=== PATIENT | female | born 1980 | race Two or more races ===

== ENCOUNTER → 2017-01-07 | Outpatient (CLI) | payer OTHER ==
[2015-12-28 12:33] VITALS: BP 107/63
== END | disposition home or self-care (01) ==
LOC: SPEC 09:19
PROVIDERS: ATTEND Family Medicine
DX: Z01.419 Encounter for gynecological examination (general) (routine) without abnormal findings (principal)
CPT/HCPCS: 88175

== ENCOUNTER → 2017-01-16 | Outpatient (CLI) | payer OTHER ==
[2015-12-28 12:33] VITALS: BP 107/63
--- NOTE | 2017-01-16 10:28 | RAD ---
Abdominal ultrasound, 01/16/2017: History: Right upper quadrant pain The gallbladder is within normal limits in size. There is no sonographic evidence of cholelithiasis. The gallbladder belle are not thickened. No bile duct dilatation is seen. The visualized portions of the liver, spleen and both kidneys are unremarkable. The pancreas was obscured by overlying bowel. The visualized portions of the aorta and inferior vena cava are unremarkable. No free fluid is evident in the abdomen. IMPRESSION: No significant abdominal abnormality is detected, although the pancreas was obscured by overlying bowel.
== END | disposition home or self-care (01) ==
LOC: US 10:30
PROVIDERS: ATTEND Family Medicine
DX: R10.11 Right upper quadrant pain (principal)
CPT/HCPCS: 76700

== ENCOUNTER 2017-09-25 05:57 | Day surgery (SDC) | payer OTHER ==
[2017-09-25 06:30] LABS: NEG OBC UR NEG; POS OBC UR POS
[2017-09-25] MEDS ORDERED: ONDANSETRON PF 4 MG/2 ML VIAL. IV PRN (07:00)
[2017-09-25] MEDS ORDERED: LIDOCAINE 1% PF 2 ML VIAL. ID PRN (07:00)
[2017-09-25] MEDS ORDERED: PROCHLORPERAZINE 10 MG/2 ML VIAL. IV PRN (07:00)
[2017-09-25] MEDS ORDERED: fentaNYL PF VIAL 100 MCG/2 ML VIAL IV PRN ×2 (07:00)
[2017-09-25] MEDS ORDERED: IV RINGERS,LACTATED 1000ML 1,000 ML IV SCH (07:00)
[2017-09-25] MEDS ORDERED: MIDAZOLAM HCL/PF 2 MG/2 ML VIAL. ONE (07:05)
[2017-09-25] MEDS ORDERED: KETOROLAC 30 MG/ML INJ FOR OR. INJ ONE (07:05)
[2017-09-25] MEDS ORDERED: DEXAMETHASONE SOD PHOS 20 MG/5 ML VIAL. ONE (07:05)
[2017-09-25] MEDS ORDERED: LIDOCAINE 2% PF Vial for OR 5 ML VIAL. ONE (07:05)
[2017-09-25] MEDS ORDERED: PROPOFOL 20 ML IV ONE (07:05)
[2017-09-25] MEDS ORDERED: ONDANSETRON PF 4 MG/2 ML VIAL. ONE (07:05)
[2017-09-25] MEDS ORDERED: ESTROGENS, CONJ VAGINAL CREAM 30GM TUBE. ONE (07:11)
[2017-09-25] MEDS ORDERED: 0.9 % SODIUM CHLORIDE 50 ML VIAL. IJ ONE (07:13)
[2017-09-25] MEDS ORDERED: BUPIVAC MPF-EPI 0.5%-1:200000 30 ML VIAL. ONE (07:30)
--- NOTE | 2017-09-25 08:52 | PDOC ---
BRIEF OPERATIVE NOTE Date: Sep 25, 2017 Pre-Op Diagnosis erosion of vaginal mesh; pt asymptomatic, can feel during intercourse Post-Op Diagnosis same Procedure Performed excision of small piece of vaginal mesh at pt upper right side of mesh on anterior vagina Surgeon Dr. Iza Enriquez Anesthesiologist Dr. Al Anesthesia Type: General Blood Loss 10cc IV Fluid see anesthesia records Urine Output 120cc straight cath clear prior and 10-15cc clear after as well Specimens Obtained none Findings small 0.5cm area on pt upper right anterior vaginal wall with tiny piece of blue prolene poking through and the 0.5cm area thinned on anterior vaginal wall Complications none Operative Note [id number] IZA ENRIQUEZ MD Sep 25, 2017 08:52
[2017-09-25] MEDS ORDERED: MAG HYDROX/ALUMINUM HYD/SIMETH 30 ML ORAL.SUSP PO PRN (09:00)
[2017-09-25] MEDS ORDERED: diphenhydrAMINE HCL 25 MG CAPSULE PO PRN (09:00)
[2017-09-25] MEDS ORDERED: SIMETHICONE 80 MG TAB.CHEW PO PRN (09:00)
[2017-09-25] MEDS ORDERED: NALOXONE 0.4 MG/ML VIAL. IV PRN (09:00)
[2017-09-25] MEDS ORDERED: oxyCODONE/APAP 5/325 1 TAB TABLET PO PRN ×2 (09:00→09:15)
[2017-09-25] MEDS ORDERED: CALCIUM CARBONATE 500 MG TAB.CHEW PO PRN (09:00)
[2017-09-25] MEDS ORDERED: 0.9 % SODIUM CHLORIDE 10 ML DISP.SYRIN. IV PRN (09:00)
[2017-09-25] MEDS ORDERED: diphenhydrAMINE 50 MG/ML VIAL IV PRN (09:00)
[2017-09-25] MEDS ORDERED: OXYC-323 PO (09:12)
[2017-09-25 09:31] VITALS: BP 100/63
--- NOTE | 2017-09-25 09:39 | CONS ---
DATE OF CONSULTATION: 09/25/2017 PREOPERATIVE DIAGNOSIS: Dyspareunia per her with a very tiny piece of blue Prolene protruding through on the anterior vaginal wall from a previous TVT, bladder sling. POSTOPERATIVE DIAGNOSIS: Dyspareunia per her with a very tiny piece of blue Prolene protruding through on the anterior vaginal wall from a previous TVT, bladder sling. PROCEDURE: Excision of a small piece of vaginal mesh from the patient's right upper anterior vaginal wall. SURGEON: Dr. Serenity Enriquez. COMPLIANCE REPRESENTATIVE: OR personnel. ANESTHESIA: General. ANESTHESIOLOGIST: Dr. Al. ESTIMATED BLOOD LOSS: Less than 10 mL. IV FLUIDS: Please see anesthesia. URINE: 120 mL straight cath prior to procedure and 10-15 mL clear at the end as well. SPECIMENS: None. FINDINGS: A small area of a tiny piece of blue Prolene that I could see and feel on the anterior right upper vaginal wall, but it was thinning in about 0.5 cm area. COMPLICATIONS: None. DESCRIPTION OF PROCEDURE: This patient was taken to the operating room where general anesthesia was placed. The patient was placed in dorsal lithotomy position in [facility]. The patient's vagina was prepped and draped in the normal sterile fashion and straight cath urine was done prior to starting. After a timeout was performed, a weighted speculum was placed in the patient's vagina. A curved Radha clamp was used to bean picker that tiny piece of blue Prolene in the anterior vaginal wall, pulling it down I could feel about a 0.5 cm area that was thinning around it, so I did inject it with a dilute solution of 1 part ____ of bupivacaine to 100 mL of injectable saline. It was a dilute solution. 20-25 mL was injected in this area. A scalpel was used to make a small vertical 1 cm incision over the area. Allis clamps were placed on either side and it was dissected from the area beneath where it was thinning on this right upper anterior vaginal wall. The sling was peeled off the anterior skin that was right there and it was clipped and excised, a very small 0.5 cm area. There was no bleeding. The remainder of the sling remained intact and covered. This was over a year ago, so I just excised the area that was protruding through and thinning. Once this was done, I felt around, making sure that we excised the complete area that was coming down. I did a 2-layer closure, first a subcuticular layer with 4-0 Monocryl and then 2-0 Vicryl over the top making sure to start above and over so below the area to hopefully prevent any of this from happening again. Once it was done, Premarin cream was used to cover the incisional areas and straight cath urine was done at the end to make sure the urine in urethral area was untouched and clear. SERENITY ENRIQUEZ MD DR: MIHIR/lina JOB#: [id number] / [id number]
--- NOTE | 2017-09-26 10:25 | OP ---
DATE OF SURGERY: 09/25/2017 PREOPERATIVE DIAGNOSIS: Dyspareunia per her with a very tiny piece of blue Prolene protruding through on the anterior vaginal wall from a previous TVT, bladder sling. POSTOPERATIVE DIAGNOSIS: Dyspareunia per her with a very tiny piece of blue Prolene protruding through on the anterior vaginal wall from a previous TVT, bladder sling. PROCEDURE: Excision of a small piece of vaginal mesh from the patient's right upper anterior vaginal wall. SURGEON: Dr. Serenity Enriquez. WASHING TUB OPERATOR: OR personnel. ANESTHESIA: General. ANESTHESIOLOGIST: Dr. Al. ESTIMATED BLOOD LOSS: Less than 10 mL. IV FLUIDS: Please see anesthesia. URINE: 120 mL straight cath prior to procedure and 10-15 mL clear at the end as well. SPECIMENS: None. FINDINGS: A small area of a tiny piece of blue Prolene that I could see and feel on the anterior right upper vaginal wall, but it was thinning in about 0.5 cm area. COMPLICATIONS: None. DESCRIPTION OF PROCEDURE: This patient was taken to the operating room where general anesthesia was placed. The patient was placed in [facility]. The patient's vagina was prepped and draped in the normal sterile fashion and straight cath urine was done prior to starting. After a timeout was performed, a weighted speculum was placed in the patient's vagina. A curved Radha clamp was used to order picker/assembler that tiny piece of blue Prolene in the anterior vaginal wall, pulling it down I could feel about a 0.5 cm area that was thinning around it, so I did inject it with a dilute solution of 1 part ____ of bupivacaine to 100 mL of injectable saline. It was a dilute solution. 20-25 mL was injected in this area. A scalpel was used to make a small vertical 1 cm incision over the area. Allis clamps were placed on either side and it was dissected from the area beneath where it was thinning on this right upper anterior vaginal wall. The sling was peeled off the anterior skin that was right there and it was clipped and excised, a very small 0.5 cm area. There was no bleeding. The remainder of the sling remained intact and covered. This was over a year ago, so I just excised the area that was protruding through and thinning. Once this was done, I felt around, making sure that we excised the complete area that was coming down. I did a 2-layer closure, first a subcuticular layer with 4-0 Monocryl and then 2-0 Vicryl over the top making sure to start above and over so below the area to hopefully prevent any of this from happening again. Once it was done, Premarin cream was used to cover the incisional areas and straight cath urine was done at the end to make sure the urine in urethral area was untouched and clear. SERENITY ENRIQUEZ MD DR: MIHIR/lina JOB#: [id number] / [id number]
== END 2017-09-25 10:08 | disposition home or self-care (01) ==
LOC: SURG 05:57
PROVIDERS: ATTEND Obstetrics & Gynecology
DX: T83.711A Erosion of implanted vaginal mesh to surrounding organ or tissue, initial encounter (principal); N94.19 Other specified dyspareunia; Z98.890 Other specified postprocedural states; Z88.8 Allergy status to other drugs, medicaments and biological substances
CPT/HCPCS: 57287; 81025; J0780; J1100; J1885; J2250; J2405; J2704; J3010; J3490; J2001

== ENCOUNTER → 2018-06-19 | Outpatient (CLI) | payer OTHER ==
[~2018-06-19] MED LIST: OXYC-323 PO
--- NOTE | 2018-06-19 08:40 | RAD ---
Examination: Ultrasound right upper quadrant abdomen HISTORY: History of right upper quadrant pain COMPARISON: 01/16/2017 FINDINGS: The visualized pancreas grossly appears unremarkable. The echogenicity of the liver grossly appears unremarkable. No evidence of gallstones. The right lobe of the liver measures 15 cm in length. The common bile duct measures 3.8 mm in diameter. The right kidney measures 10.6 cm. IMPRESSION: Unremarkable visualized exam. Electronically signed by: Rodolfo Basurto MD (06/19/2018 8:37 AM) [id number]
== END | disposition home or self-care (01) ==
LOC: US 07:00
PROVIDERS: ATTEND Nurse Practitioner Gerontology
DX: R10.11 Right upper quadrant pain (principal); Z88.8 Allergy status to other drugs, medicaments and biological substances
CPT/HCPCS: 76705

== ENCOUNTER 2018-07-08 13:31 | Observation (INO) | payer OTHER ==
[~2018-07-08] VITALS: Ht 165.1 cm; Wt 87.2 kg
[2018-07-08 14:46] LABS: BASO # 0.1 x10^3/uL (0.0-0.2); BASO % 1 % (0-3); EOS # 0.2 x10^3/uL (0.0-0.7); EOS % 3 % (0-3); HEMATOCRIT 34.7 % (36.0-47.0); HEMOGLOBIN 11.2 g/dL (12.0-15.5); LYMPH # 2.1 x10^3/uL (1.0-4.8); LYMPH % 33 % (24-48); MEAN CORPUSCULAR HEMOGLOBIN 23 pg (25-35); MEAN CORPUSCULAR HGB CONC 32 g/dL (31-37); MEAN CORPUSCULAR VOLUME 71 fL (79-100); MONO # 0.5 x10^3/uL (0.0-1.1); MONO % 7 % (0-9); NEUT # 3.5 x10^3uL (1.8-7.7); NEUT % 56 % (31-73); PLATELET COUNT 382 x10^3/uL (140-400); RED BLOOD COUNT 4.88 x10^6/uL (3.50-5.40); RED CELL DISTRIBUTION WIDTH 17.8 % (11.5-14.5); WHITE BLOOD COUNT 6.4 x10^3/uL (4.0-11.0)
[2018-07-08 14:49] LABS: BILIRUBIN,URINE NEGATIVE (NEG); CLARITY,URINE CLEAR; COLOR,URINE YELLOW; NITRITE,URINE NEGATIVE (NEG); PH,URINE 5.5; PROTEIN,URINE NEGATIVE (NEG-TRACE); UROBILINOGEN,URINE 0.2 mg/dL (0.2 mg/dL)
[2018-07-08 14:54] LABS: CREATININE 0.7 mg/dL (0.6-1.0); GFR 92.7; POTASSIUM 3.6 mmol/L (3.5-5.1)
[2018-07-08 14:57] LABS: ALBUMIN 3.6 g/dL (3.4-5.0)
[2018-07-08 14:58] LABS: BACTERIA,URINE MODERATE /HPF (0-FEW); RBC,URINE 0 /HPF (0-2); SQUAMOUS EPITHELIAL CELL,UR MANY /LPF; WBC,URINE RARE /HPF (0-4)
--- NOTE | 2018-07-08 15:07 | RAD ---
EXAM: Chest, 2 views. HISTORY: Pain. COMPARISON: 08/19/2011. FINDINGS: 2 views the chest are obtained. There is no infiltrate, pleural effusion or pneumothorax. The heart is normal in size. IMPRESSION: No acute pulmonary finding. Electronically signed by: Antonia Montez MD (07/08/2018 3:04 PM) [facility]
[2018-07-08 15:09] LABS: ANISOCYTOSIS SLIGHT; HYPOCHROMIA SLIGHT; MICROCYTOSIS MOD; PLT ESTIMATE ADEQUATE (ADEQUATE); POIKILOCYTOSIS SLIGHT
[2018-07-08 15:10] LABS: OVALOCYTES FEW
[2018-07-08 15:13] LABS: TOTAL BILIRUBIN 0.7 mg/dL (0.2-1.0); TOTAL PROTEIN 7.1 g/dL (6.4-8.2)
--- NOTE | 2018-07-08 16:10 | PHYS DOC ---
Past Medical History Past Medical History: No Pertinent History Additional Past Surgical Histo: BLADDER SLING, TUMMY TUCK. Alcohol Use: Occasionally Drug Use: None Adult General Chief Complaint Chief Complaint: ABDOMINAL PAIN HPI HPI 38-year-old female presents for evaluation of RIGHT upper abdominal pain. She reports symptoms started again last night. He has had similar pain in the past. She reports was seen 3 weeks ago by her primary care doctor, had a ultrasound of the gallbladder that was negative at that time. She reports pain starts in her right upper quadrant radiates up to the back of her right shoulder. Symptoms started again last night after eating dinner. She denies vomiting, diarrhea or fevers. Denies shortness of breath. Review of Systems Review of Systems Constitutional: Denies fever or chills [] Eyes: Denies change in visual acuity, redness, or eye pain [] HENT: Denies nasal congestion or sore throat [] Respiratory: Denies cough or shortness of breath [] Cardiovascular: No additional information not addressed in HPI [] Neurologic: Denies headache, focal weakness or sensory changes [] Endocrine: Denies polyuria or polydipsia [] All other systems were reviewed and found to be within normal limits, except as documented in this note. Allergies Allergies Allergies Coded Allergies Type Severity Reaction Last Updated Verified codeine Allergy Intermediate Rash 09/25/17 Yes Physical Exam Physical Exam Constitutional: Well developed, well nourished, non-toxic appearance. [] Neck: Normal range of motion, no tenderness, supple, no stridor. [] Cardiovascular:Heart rate regular rhythm, no murmur [] Lungs & Thorax: Bilateral breath sounds clear to auscultation [] Abdomen: Bowel sounds normal, soft, TTP RT UPPER ABD, no masses, no pulsatile masses. [] Skin: Warm, dry, no erythema, no rash. [] Back: No tenderness, no CVA tenderness. [] Extremities: No tenderness, no cyanosis, no clubbing, ROM intact, no edema. [] Neurologic: Alert and oriented X 3, normal motor function, normal sensory function, no focal deficits noted. [] Psychologic: Affect normal, judgement normal, mood normal, Current Patient Data Vital Signs Vital Signs Date Time Temp Pulse Resp B/P (MAP) Pulse Ox O2 Delivery O2 Flow Rate FiO2 07/08/18 14:05 98.3 83 20 119/61 (80) 99 Room Air 98.3 Lab Values Laboratory Tests Test 07/08/18 14:05 07/08/18 14:08 07/08/18 14:35 Urine Collection Type Unknown Urine Color Yellow Urine Clarity Clear Urine pH 5.5 Urine Specific [place] 1.020 Urine Protein Negative mg/dL (NEG-TRACE) Urine Glucose (UA) Negative mg/dL (NEG) Urine Ketones (Stick) Trace mg/dL (NEG) Urine Blood Negative (NEG) Urine Nitrite Negative (NEG) Urine Bilirubin Negative (NEG) Urine Urobilinogen Dipstick 0.2 mg/dL (0.2 mg/dL) Urine Leukocyte Esterase Negative (NEG) Urine RBC 0 /HPF (0-2) Urine WBC Rare /HPF (0-4) Urine Squamous Epithelial Cells Many /LPF Urine Bacteria Moderate /HPF (0-FEW) Urine Mucus Mod /LPF POC Urine HCG, Qualitative Hcg negative (Negative) White Blood Count 6.4 x10^3/uL (4.0-11.0) Red Blood Count 4.88 x10^6/uL (3.50-5.40) Hemoglobin 11.2 g/dL (12.0-15.5) L Hematocrit 34.7 % (36.0-47.0) L Mean Corpuscular Volume 71 fL (79-100) L Mean Corpuscular Hemoglobin 23 pg (25-35) L Mean Corpuscular Hemoglobin Concent 32 g/dL (31-37) Red Cell Distribution Width 17.8 % (11.5-14.5) H Platelet Count 382 x10^3/uL (140-400) Neutrophils (%) (Auto) 56 % (31-73) Lymphocytes (%) (Auto) 33 % (24-48) Monocytes (%) (Auto) 7 % (0-9) Eosinophils (%) (Auto) 3 % (0-3) Basophils (%) (Auto) 1 % (0-3) Neutrophils # (Auto) 3.5 x10^3uL (1.8-7.7) Lymphocytes # (Auto) 2.1 x10^3/uL (1.0-4.8) Monocytes # (Auto) 0.5 x10^3/uL (0.0-1.1) Eosinophils # (Auto) 0.2 x10^3/uL (0.0-0.7) Basophils # (Auto) 0.1 x10^3/uL (0.0-0.2) Platelet Estimate Adequate (ADEQUATE) Hypochromasia Slight Poikilocytosis Slight Anisocytosis Slight Microcytosis Mod Ovalocytes Few Sodium Level 138 mmol/L (136-145) Potassium Level 3.6 mmol/L (3.5-5.1) Chloride Level 101 mmol/L (98-107) Carbon Dioxide Level 26 mmol/L (21-32) Anion Gap 11 (6-14) Blood Urea Nitrogen 12 mg/dL (7-20) Creatinine 0.7 mg/dL (0.6-1.0) Estimated GFR (Cockcroft-Gault) 92.7 BUN/Creatinine Ratio 17 (6-20) Glucose Level 91 mg/dL (70-99) Calcium Level 9.0 mg/dL (8.5-10.1) Total Bilirubin 0.7 mg/dL (0.2-1.0) Aspartate Amino Transferase (AST) 15 U/L (15-37) Alanine Aminotransferase (ALT) 13 U/L (14-59) L Alkaline Phosphatase 79 U/L (46-116) Creatine Kinase 65 U/L (26-192) Creatine Kinase MB (Mass) < 0.5 ng/mL (0.0-3.6) Creatine Kinase MB Relative Index % (0-4) Troponin I Quantitative < 0.017 ng/mL (0.000-0.055) Total Protein 7.1 g/dL (6.4-8.2) Albumin 3.6 g/dL (3.4-5.0) Albumin/Globulin Ratio 1.0 (1.0-1.7) Lipase 176 U/L (73-393) Laboratory Tests 07/08/18 14:35 Laboratory Tests 07/08/18 14:35 EKG EKG [EKG rate 62, sinus rhythm, T-wave abnormality in inferior leads Radiology/Procedures Radiology/Procedures [PROCEDURE: CHEST PA & LATERAL EXAM: Chest, 2 views. HISTORY: Pain. COMPARISON: 08/19/2011. FINDINGS: 2 views the chest are obtained. There is no infiltrate, pleural effusion or pneumothorax. The heart is normal in size. IMPRESSION: No acute pulmonary finding. Electronically signed by: Antonia Montez MD (07/08/2018 3:04 PM) [id number] ]] Course & Med Decision Making Course & Med Decision Making Pertinent Labs and Imaging studies reviewed. (See chart for details) [HEART SCORE=0, repeat EKG is same as first one obtained, sinus rhythm with T- wave abnormality in inferior leads, ST depression is noted, first set of cardiac enzymes is negative. Chest x-ray is negative. Patient has recently had a negative abdominal ultrasound. Patient was seen by Dr. Siddiqui, decision was made to admit patient for serial cardiac enzymes and cardiology consults. Patient is admitted to Dr. Oh, she is stable for admission.] Dragon Disclaimer Dragon Disclaimer This electronic medical record was generated, in whole or in part, using a voice recognition dictation system. Departure Departure Impression: Primary Impression: ST segment depression Additional Impression: Electrocardiogram showing T wave abnormalities Disposition: 09 ADMITTED INPATIENT Admitting Physician: Hilary Oh Condition: STABLE Referrals: HILARY OH MD (PCP) Problem Qualifiers MAXWELL GRAY APRN Jul 08, 2018 16:10
[2018-07-08 16:51] LABS: CREATINE KINASE 65 U/L (26-192)
--- NOTE | 2018-07-08 17:14 | EKG ---
[facility] [address] [place] [address] Test Date: 2018-07-08 Test Time: 16:06:37 Pat Name: FLORIAN THOMAS Department: Room: Gender: F [employer]: : 1980 Requested By: STAFF NON Order Number: [id number] Reading MD: Louie Boggs Measurements Intervals [place] Rate: 62 P: 22 WI: 158 QRS: 0 QRSD: 90 T: -2 QT: 414 QTc: 422 Interpretive Statements SINUS RHYTHM LEFTWARD AXIS T ABNORMALITY IN INFERIOR LEADS Electronically Signed On 07-14-2018 10:15:29 CDT by Louie Boggs
--- NOTE | 2018-07-08 19:54 | EKG ---
[facility] [address] [place] [address] Test Date: 2018-07-08 Test Time: 16:57:45 Pat Name: FLORIAN THOMAS Department: Room: 208 1 Gender: Female [employer] Detective: : 1980 Requested By: MAXWELL GRAY Order Number: [id number] Reading MD: Louie Boggs Measurements Intervals [place] Rate: 63 P: 25 PA: 158 QRS: 0 QRSD: 88 T: -3 QT: 406 QTc: 419 Interpretive Statements SINUS RHYTHM LEFTWARD AXIS T ABNORMALITY IN INFERIOR LEADS ABNORMAL ECG Electronically Signed On 07-14-2018 10:15:49 CDT by Louie Boggs
[2018-07-08 19:57] VITALS: BP 92/56
[2018-07-08 22:41] VITALS: BP 96/60
[2018-07-09 03:23] VITALS: BP 93/51
[2018-07-09 07:00] VITALS: BP 95/54
--- NOTE | 2018-07-09 08:09 | EKG ---
[facility] [address] [place] [address] Test Date: 2018-07-09 Test Time: 08:02:39 Pat Name: FLORIAN THOMAS Department: Room: 208 1 Gender: F [employer]: BAY[place] : 1980 Requested By: SUSIE RYAN Order Number: [id number] Reading MD: Louie Boggs Measurements Intervals [place] Rate: 58 P: 27 ND: 162 QRS: 0 QRSD: 82 T: -1 QT: 396 QTc: 392 Interpretive Statements SINUS RHYTHM LEFTWARD AXIS T ABNORMALITY IN INFERIOR LEADS ABNORMAL ECG RI6.01 No previous ECG available for comparison Electronically Signed On 07-14-2018 10:19:48 CDT by Louie Boggs
[2018-07-09 08:51] LABS: HEMOGLOBIN 11.4 g/dL (12.0-15.5); RED BLOOD COUNT 4.93 x10^6/uL (3.50-5.40); WHITE BLOOD COUNT 5.4 x10^3/uL (4.0-11.0)
[2018-07-09 08:52] LABS: CHOLESTEROL/HDL RATIO 3.1
--- NOTE | 2018-07-09 09:12 | PDOC ---
PROGRESS NOTES Subjective Subjective Patient reports R UQ pain has resolved. Denies any CP or SOA. Objective Objective Vital Signs Date Time Temp Pulse Resp B/P (MAP) Pulse Ox O2 Delivery O2 Flow Rate FiO2 07/09/18 07:00 98.5 67 16 95/54 (68) 97 Room Air 98.5 Intake and Output 07/09/18 07:00 Intake Total 0 ml Output Total 150 ml Balance -150 ml Intake Oral 0 ml Output Urine Total 150 ml # Voids 2 Physical Exam Abdomen: Normal bowel sounds, Soft, No tenderness Heart: Regular rate Extremities: No edema General: Alert, Oriented X3, No acute distress Lungs: Clear to auscultation Assessment Assessment Problems Medical Problems: (1) Electrocardiogram showing T wave abnormalities Status: Acute (2) ST segment depression Status: Acute Plan Plan of Care 1. R UQ pain - resolved. U/S was WNL. Will order CT abdomen and pelvis to complete evaluation today, anticipate home afterwards. Patient admits that pain occurred after eating a fatty meal. Strongly advised lower fat diet. Further tx as outpatient if pain recurs. 2. abnormal EKG - patient had very similar one in our office in 2016 with flipped T waves in III. Troponin negative. No further cardiac evaluation presently indicated. Cardiology consult and Echo cancelled. Comment Review of Relevant I have reviewed the following items rogers (where applicable) has been applied. Labs Laboratory Tests Test 07/08/18 14:05 07/08/18 14:08 07/08/18 14:35 07/09/18 08:20 Urine Collection Type Unknown Urine Color Yellow Urine Clarity Clear Urine pH 5.5 Urine Specific [place] 1.020 Urine Protein Negative mg/dL (NEG-TRACE) Urine Glucose (UA) Negative mg/dL (NEG) Urine Ketones (Stick) Trace mg/dL (NEG) Urine Blood Negative (NEG) Urine Nitrite Negative (NEG) Urine Bilirubin Negative (NEG) Urine Urobilinogen Dipstick 0.2 mg/dL (0.2 mg/dL) Urine Leukocyte Esterase Negative (NEG) Urine RBC 0 /HPF (0-2) Urine WBC Rare /HPF (0-4) Urine Squamous Epithelial Cells Many /LPF Urine Bacteria Moderate /HPF (0-FEW) Urine Mucus Mod /LPF Bedside Urine HCG, Qualitative Hcg negative (Negative) White Blood Count 6.4 x10^3/uL (4.0-11.0) 5.4 x10^3/uL (4.0-11.0) Red Blood Count 4.88 x10^6/uL (3.50-5.40) 4.93 x10^6/uL (3.50-5.40) Hemoglobin 11.2 g/dL (12.0-15.5) 11.4 g/dL (12.0-15.5) Hematocrit 34.7 % (36.0-47.0) 35.0 % (36.0-47.0) Mean Corpuscular Volume 71 fL (79-100) 71 fL (79-100) Mean Corpuscular Hemoglobin 23 pg (25-35) 23 pg (25-35) Mean Corpuscular Hemoglobin Concent 32 g/dL (31-37) 33 g/dL (31-37) Red Cell Distribution Width 17.8 % (11.5-14.5) 18.0 % (11.5-14.5) Platelet Count 382 x10^3/uL (140-400) 383 x10^3/uL (140-400) Neutrophils (%) (Auto) 56 % (31-73) Lymphocytes (%) (Auto) 33 % (24-48) Monocytes (%) (Auto) 7 % (0-9) Eosinophils (%) (Auto) 3 % (0-3) Basophils (%) (Auto) 1 % (0-3) Neutrophils # (Auto) 3.5 x10^3uL (1.8-7.7) Lymphocytes # (Auto) 2.1 x10^3/uL (1.0-4.8) Monocytes # (Auto) 0.5 x10^3/uL (0.0-1.1) Eosinophils # (Auto) 0.2 x10^3/uL (0.0-0.7) Basophils # (Auto) 0.1 x10^3/uL (0.0-0.2) Platelet Estimate Adequate (ADEQUATE) Hypochromasia Slight Poikilocytosis Slight Anisocytosis Slight Microcytosis Mod Ovalocytes Few Sodium Level 138 mmol/L (136-145) Potassium Level 3.6 mmol/L (3.5-5.1) Chloride Level 101 mmol/L (98-107) Carbon Dioxide Level 26 mmol/L (21-32) Anion Gap 11 (6-14) Blood Urea Nitrogen 12 mg/dL (7-20) Creatinine 0.7 mg/dL (0.6-1.0) Estimated GFR (Cockcroft-Gault) 92.7 BUN/Creatinine Ratio 17 (6-20) Glucose Level 91 mg/dL (70-99) Calcium Level 9.0 mg/dL (8.5-10.1) Total Bilirubin 0.7 mg/dL (0.2-1.0) Aspartate Amino Transf (AST/SGOT) 15 U/L (15-37) Alanine Aminotransferase (ALT/SGPT) 13 U/L (14-59) Alkaline Phosphatase 79 U/L (46-116) Creatine Kinase 65 U/L (26-192) Creatine Kinase MB (Mass) < 0.5 ng/mL (0.0-3.6) Creatine Kinase MB Relative Index % (0-4) Troponin I Quantitative < 0.017 ng/mL (0.000-0.055) < 0.017 ng/mL (0.000-0.055) Total Protein 7.1 g/dL (6.4-8.2) Albumin 3.6 g/dL (3.4-5.0) Albumin/Globulin Ratio 1.0 (1.0-1.7) Lipase 176 U/L (73-393) Triglycerides Level 71 mg/dL (0-150) Cholesterol Level 148 mg/dL (0-200) LDL Cholesterol, Calculated 87 mg/dL (0-100) VLDL Cholesterol, Calculated 14 mg/dL (0-40) Non-HDL Cholesterol Calculated 101 mg/dL (0-129) HDL Cholesterol 47 mg/dL (40-60) Cholesterol/HDL Ratio 3.1 Laboratory Tests Test 07/08/18 14:05 07/08/18 14:08 07/08/18 14:35 07/09/18 08:20 Urine Collection Type Unknown Urine Color Yellow Urine Clarity Clear Urine pH 5.5 Urine Specific [place] 1.020 Urine Protein Negative mg/dL (NEG-TRACE) Urine Glucose (UA) Negative mg/dL (NEG) Urine Ketones (Stick) Trace mg/dL (NEG) Urine Blood Negative (NEG) Urine Nitrite Negative (NEG) Urine Bilirubin Negative (NEG) Urine Urobilinogen Dipstick 0.2 mg/dL (0.2 mg/dL) Urine Leukocyte Esterase Negative (NEG) Urine RBC 0 /HPF (0-2) Urine WBC Rare /HPF (0-4) Urine Squamous Epithelial Cells Many /LPF Urine Bacteria Moderate /HPF (0-FEW) Urine Mucus Mod /LPF Bedside Urine HCG, Qualitative Hcg negative (Negative) White Blood Count 6.4 x10^3/uL (4.0-11.0) 5.4 x10^3/uL (4.0-11.0) Red Blood Count 4.88 x10^6/uL (3.50-5.40) 4.93 x10^6/uL (3.50-5.40) Hemoglobin 11.2 g/dL (12.0-15.5) 11.4 g/dL (12.0-15.5) Hematocrit 34.7 % (36.0-47.0) 35.0 % (36.0-47.0) Mean Corpuscular Volume 71 fL (79-100) 71 fL (79-100) Mean Corpuscular Hemoglobin 23 pg (25-35) 23 pg (25-35) Mean Corpuscular Hemoglobin Concent 32 g/dL (31-37) 33 g/dL (31-37) Red Cell Distribution Width 17.8 % (11.5-14.5) 18.0 % (11.5-14.5) Platelet Count 382 x10^3/uL (140-400) 383 x10^3/uL (140-400) Neutrophils (%) (Auto) 56 % (31-73) Lymphocytes (%) (Auto) 33 % (24-48) Monocytes (%) (Auto) 7 % (0-9) Eosinophils (%) (Auto) 3 % (0-3) Basophils (%) (Auto) 1 % (0-3) Neutrophils # (Auto) 3.5 x10^3uL (1.8-7.7) Lymphocytes # (Auto) 2.1 x10^3/uL (1.0-4.8) Monocytes # (Auto) 0.5 x10^3/uL (0.0-1.1) Eosinophils # (Auto) 0.2 x10^3/uL (0.0-0.7) Basophils # (Auto) 0.1 x10^3/uL (0.0-0.2) Platelet Estimate Adequate (ADEQUATE) Hypochromasia Slight Poikilocytosis Slight Anisocytosis Slight Microcytosis Mod Ovalocytes Few Sodium Level 138 mmol/L (136-145) Potassium Level 3.6 mmol/L (3.5-5.1) Chloride Level 101 mmol/L (98-107) Carbon Dioxide Level 26 mmol/L (21-32) Anion Gap 11 (6-14) Blood Urea Nitrogen 12 mg/dL (7-20) Creatinine 0.7 mg/dL (0.6-1.0) Estimated GFR (Cockcroft-Gault) 92.7 BUN/Creatinine Ratio 17 (6-20) Glucose Level 91 mg/dL (70-99) Calcium Level 9.0 mg/dL (8.5-10.1) Total Bilirubin 0.7 mg/dL (0.2-1.0) Aspartate Amino Transf (AST/SGOT) 15 U/L (15-37) Alanine Aminotransferase (ALT/SGPT) 13 U/L (14-59) Alkaline Phosphatase 79 U/L (46-116) Creatine Kinase 65 U/L (26-192) Creatine Kinase MB (Mass) < 0.5 ng/mL (0.0-3.6) Creatine Kinase MB Relative Index % (0-4) Troponin I Quantitative < 0.017 ng/mL (0.000-0.055) < 0.017 ng/mL (0.000-0.055) Total Protein 7.1 g/dL (6.4-8.2) Albumin 3.6 g/dL (3.4-5.0) Albumin/Globulin Ratio 1.0 (1.0-1.7) Lipase 176 U/L (73-393) Triglycerides Level 71 mg/dL (0-150) Cholesterol Level 148 mg/dL (0-200) LDL Cholesterol, Calculated 87 mg/dL (0-100) VLDL Cholesterol, Calculated 14 mg/dL (0-40) Non-HDL Cholesterol Calculated 101 mg/dL (0-129) HDL Cholesterol 47 mg/dL (40-60) Cholesterol/HDL Ratio 3.1 Medications Active Scripts Active Reported Percocet 5-325 Mg Tablet (Oxycodone/Acetaminophen) 1 Each Tablet 1-2 Tab PO Q4- 6HRS No Known Medications Prior To Admisstion (Info) Each 1 Each MC Vitals/I & O Vital Sign - Last 24 Hours 07/08/18 07/08/18 07/08/18 07/08/18 14:05 14:08 14:38 14:55 Temp 98.3 98.3 Pulse 83 64 64 76 Resp 20 B/P (MAP) 119/61 (80) 119/61 (80) 105/67 (80) 112/65 (81) Pulse Ox 99 O2 Delivery Room Air Room Air Room Air 07/08/18 07/08/18 07/08/18 07/08/18 15:08 15:38 16:08 16:38 Pulse 60 60 60 62 B/P (MAP) 104/71 (82) 107/67 (80) 110/67 (81) 114/67 (83) O2 Delivery Room Air Room Air Room Air 07/08/18 07/08/18 07/08/18 07/08/18 17:08 18:38 19:08 19:38 Pulse 66 66 70 66 Resp 20 B/P (MAP) 111/66 (81) 104/90 (95) 107/69 (82) 106/58 (74) Pulse Ox 98 O2 Delivery Room Air Room Air Room Air Room Air 07/08/18 07/08/18 07/09/18 07/09/18 19:57 22:41 03:23 07:00 Temp 98.5 98.2 98.1 98.5 98.5 98.2 98.1 98.5 Pulse 75 61 60 67 Resp 16 16 16 16 B/P (MAP) 92/56 (68) 96/60 (72) 93/51 (65) 95/54 (68) Pulse Ox 99 96 98 97 O2 Delivery Room Air Room Air Room Air Room Air Intake and Output 07/08/18 07/08/18 07/09/18 15:00 23:00 07:00 Intake Total 0 ml Output Total 150 ml Balance -150 ml NGOC MACIEL MD Jul 09, 2018 09:12
[2018-07-09] MEDS ORDERED: CONTRAST GIVEN. MC PRN (09:30)
[2018-07-09] MEDS ORDERED: IOHEXOL 240 MG/ML 50ML VIAL. PO ONE (10:00)
[2018-07-09] MEDS ORDERED: IOHEXOL 300 MG/ML 100ML VIAL. IV ONE (10:00)
--- NOTE | 2018-07-09 10:00 | SSS ---
ADMIT DATE: 23-hour summary. DATE OF DISCHARGE: 07/09/2018. CHIEF COMPLAINT: Right upper quadrant pain. HISTORY OF PRESENT ILLNESS: The patient is a 38-year-old female who was initially seen by a family medicine nurse practitioner for the same complaint last month. At that point, she reported a sharp right upper quadrant pain. It seemed to radiate through to her back. This occurred after a meal. Abdominal ultrasound was done, which was within normal limits and did not show any gallstones. The patient's symptoms continued to occur intermittently. On the evening of admission she had the onset of quite severe pain in the right upper quadrant after eating a fatty meal, so she came to the Emergency Room. An EKG was done as part of her workup in the Emergency Department. This was read as abnormal with flipped T waves in lead 3, and the patient was admitted for further evaluation. PAST MEDICAL HISTORY: None. PAST SURGICAL HISTORY: Bladder pin up and tummy tuck. ALLERGIES: THE PATIENT IS ALLERGIC OR INTOLERANT TO CODEINE. HOME MEDICATIONS: None at this time. The patient has taken Adipex in the past. FAMILY HISTORY: Noncontributory. SOCIAL HISTORY: The patient is . She does not smoke cigarettes. 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 She does not drink alcohol to excess. REVIEW OF SYSTEMS: The patient denies fever or chills. She denies cough or shortness of breath. She denies any chest pain or palpitations. She reports that her abdominal pain stopped last night and has not recurred. She denies diarrhea or constipation. She denies lower extremity edema. PHYSICAL EXAMINATION: GENERAL: The patient is alert and oriented x 3, resting comfortably in bed in no acute distress. HEENT: PERRL, EOMI, sclerae clear. Oropharynx: Mucous membranes moist. NECK: Supple, without lymphadenopathy. CHEST: Clear to auscultation. CARDIOVASCULAR: Regular rhythm without murmur. ABDOMEN: Soft, nontender, normoactive bowel sounds are present. EXTREMITIES: Bilateral lower extremities are without edema. HOSPITAL COURSE: The patient was admitted and placed on telemetry where she remained in sinus rhythm. Troponin was negative on 2 occasions. Her EKG remains unchanged compared to one done in our office in 2016, and she continues without any chest pain. A CT of the abdomen and pelvis was done and was without acute findings. She is strongly advised to avoid fatty foods. Further evaluation can be done as an outpatient if her pain reoccurs. FINAL DIAGNOSES: 1. Right upper quadrant pain. 2. History of abnormal EKG. NGOC MACIEL MD DR: ARIANA/lina JOB#: [id number] / [id number] TEO
[2018-07-09 11:00] VITALS: BP 82/57
--- NOTE | 2018-07-09 12:07 | RAD ---
CT abdomen and pelvis with contrast History: Right upper quadrant pain Technique: After the administration of oral and intravenous contrast, CT imaging was performed of the abdomen and pelvis. Multiplanar images are reviewed. Exposure: One or more of the following individualized dose reduction techniques were utilized for this examination: 1. Automated exposure control 2. Adjustment of the mA and/or kV according to patient size 3. Use of iterative reconstruction technique. Contrast: 75 cc Omnipaque 300 Comparison: None Findings: There is no significant abnormality of the visualized lung bases. There is no significant abnormality of the liver, spleen, pancreas, adrenal glands. There is small accessory spleen. Both kidneys enhance without hydronephrosis. There is 1 cm superior left renal cyst. Small 0.7 cm hypodense lesion of the mid anterior right kidney is too small to accurately characterize. Gallbladder is present without obvious intraluminal abnormality by CT. There is no significant inflammatory change adjacent to the bowel. There is no evidence of bowel obstruction or free air. There is no significant inflammatory change localized about the bowel. Normal appendix is visualized. There is mild fluid density of the right posterior pelvis, also probable fat-containing lesion in the right posterior pelvis as seen on images 69-71 measuring about 2.7 cm, no associated calcification. Impression: 1. There is no evidence of acute appendicitis. 2. There is minimal free fluid posterior right pelvis. 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 3. There is superior left renal cyst, also hypodense lesion of the right kidney too small to accurately characterize. Electronically signed by: Brendon London MD (07/09/2018 12:04 PM) [id number]
== END 2018-07-09 15:15 | disposition home or self-care (01) ==
LOC: ER 13:31 → 2 NORTH 17:40 → INTOOBSV 17:40 → 2 NORTH 19:42
PROVIDERS: ADMIT Family Medicine; ATTEND Family Medicine
DX: R10.11 Right upper quadrant pain (principal); R94.31 Abnormal electrocardiogram [ECG] [EKG]; Z23 Encounter for immunization
CPT/HCPCS: 36415; 71046; 74177; 80053; 80061; 81001; 81025; 82553; 83690; 84484; 85025; 85027; 87086; 90471; 90756; 93005; 99285; G0378; Q9966; Q9967; G0379; Q2035

== ENCOUNTER → 2018-07-15 | Outpatient (CLI) | payer OTHER ==
[2018-07-09 11:00] VITALS: BP 82/57
--- NOTE | 2018-07-15 16:00 | RAD ---
Examination: PELVIS W/TV History: follow up ultrasound rt ovarian mass on CT Comparison/Correlation: None Findings: Transabdominal and transvaginal pelvic ultrasound was performed. Transvaginal technique was utilized to better assess the adnexal structures. Uterus measures 10.2 cm and 4.5 cm x 5.8 cm. Endometrial thickness of 2.1 cm is noted. Endometrium is mildly heterogeneous. Fibroid at the anterior aspect of the uterus is present in a subendometrial location measuring 1.6 cm and 1.4 cm x 1.7 cm. Nabothian cysts involving the uterine cervix seen. Right ovary measures 4.6 cm x 2.6 cm x 4.3 cm. There is a right adnexal complex cyst measuring 2.2 cm x 2 cm x 1.9 cm. Right adnexal mildly hyperechoic mass measuring 2.7 cm x 2.6 cm x 2.9 cm is identified. Hypoechoic components of this mass are present. This mass is relatively well demarcated. It is indeterminate if this mass arises from the ovary or adjacent to the ovary. No definite flow evident. Left ovary measures 2 cm x 1.6 x 2.3 cm. Benign appearing bilateral adnexal follicles which are physiologic in appearance are also present. 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 Fibroid involves the uterus. Electronically signed by: Kulwant Herrera MD (07/15/2018 3:56 PM) [facility]
== END | disposition home or self-care (01) ==
LOC: US 09:39
PROVIDERS: ATTEND Family Medicine
DX: N83.9 Noninflammatory disorder of ovary, fallopian tube and broad ligament, unspecified (principal); D25.9 Leiomyoma of uterus, unspecified
CPT/HCPCS: 76830; 76856